=== PATIENT | male | born 1950 | race Hispanic/Latino ===

== ENCOUNTER 2018-01-07 15:38 | Inpatient (IN) | payer MEDICARE ==
[2018-01-07] MEDS ORDERED: Sodium Chloride 0.9% 1,000 ML IV ONE (16:37)
[2018-01-07] MEDS ORDERED: Moxifloxacin IV 400mg/250ml NS 400 MG/250 ML BAG IVPB ONE ×2 (16:43→17:20)
[2018-01-07 16:46] LABS: BASO # 0.1 K/uL (0.0-0.2); BASO % 0.8 % (0.0-2.0); EOS # 0.2 K/uL (0.0-0.7); EOS % 2.2 % (0.0-4.0); HEMOGLOBIN 12.7 g/dL (12.0-18.0); LYMPH # 2.2 K/uL (1.0-4.3); LYMPH % 25.1 % (20.0-40.0); MEAN CELL VOLUME 81.8 fL (80.0-94.0); MEAN CORPUSCULAR HEMOGLOBIN 28.2 pg (27.0-31.0); MEAN CORPUSCULAR HGB CONC 34.5 g/dL (33.0-37.0); MEAN PLATELET VOLUME 8.2 fL (7.2-11.7); MONO # 0.8 K/uL (0.0-0.8); MONO % 9.3 % (0.0-10.0); NEUT # 5.5 K/uL (1.8-7.0); NEUT % 62.6 % (50.0-75.0); RBC 4.52 Mil/uL (4.40-5.90); RED CELL DISTRIBUTION WIDTH 14.8 % (11.5-14.5); WHITE BLOOD COUNT 8.8 K/uL (4.8-10.8)
[2018-01-07 16:55] LABS: INR 1.1; PROTHROMBIN TIME 12.2 SECONDS (9.7-12.2)
[2018-01-07] MEDS ORDERED: Sodium Chloride 0.9% 1,000 ML ONE (16:56)
[2018-01-07 17:01] LABS: SQUAMOUS EPITHIAL 1 /hpf (0-5); URINE BACTERIA OCC (<OCC); URINE BILIRUBIN NEGATIVE (NEGATIVE); URINE BLOOD 2+ (NEGATIVE); URINE CLARITY Hazy (Clear); URINE COLOR Red (YELLOW); URINE GLUCOSE (UA) 1+ mg/dL (Normal); URINE LEUKOCYTE ESTERASE NEG Leu/uL (Negative); URINE PROTEIN 2+ mg/dL (NEGATIVE); URINE UROBILINOGEN NORMAL mg/dL (0.2-1.0)
[2018-01-07 17:04] LABS: ALB/GLOB RATIO 1.7 (1.0-2.1); ALBUMIN 4.8 g/dL (3.5-5.0); ALT/SGPT 33 U/L (21-72); AST/SGOT 26 U/L (17-59); BLOOD UREA NITROGEN 21 mg/dL (9-20); GFR NON-AFRICAN AMERICAN > 60
--- NOTE | 2018-01-07 18:46 | C.PDOC ---
History Of Present Illness 67 year old male with PMH HTN, DM, BPH presents to the ED for evaluation of hematuria which began a few weeks ago. Patient states symptoms are associated with decreased stream with urination, urinary frequency and dysuria. Patient was evaluated by urologist and treated with Cipro, which initially resolved his symptoms until they reoccurred. Patient was evaluated at [facility] two days ago and was started on Bactrim. Patient states his symptoms have persisted and presents to the ED for further evaluation. Patient denies fever, chills, chest pain, vomiting. Time Seen by Provider: 01/07/18 16:12 Chief Complaint (Nursing): Male Genitourinary History Per: Patient History/Exam Limitations: no limitations Onset/Duration Of Symptoms: Days Current Symptoms Are (Timing): Still Present Associated Symptoms: Urinary Symptoms. denies: Fever, Chills, Vomiting, Chest Pain Past Medical History Reviewed: Historical Data, Nursing Documentation, Vital Signs Vital Signs: Last Vital Signs Temp 97.8 F 01/07/18 15:48 Pulse 86 01/07/18 15:48 Resp 19 01/07/18 15:48 BP 102/68 01/07/18 15:48 Pulse Ox 99 01/07/18 15:48 - Medical History PMH: HTN Surgical History: Back Surgery (C2-C3 fusion), Tonsillectomy Family History: States: Unknown Family Hx - Social History Hx Alcohol Use: Yes Hx Substance Use: No - Immunization History Hx Tetanus Toxoid Vaccination: No Hx Influenza Vaccination: No Hx Pneumococcal Vaccination: No Review Of Systems Constitutional: Negative for: Fever, Chills Cardiovascular: Negative for: Chest Pain Gastrointestinal: Negative for: Nausea, Vomiting Genitourinary: Positive for: Dysuria, Frequency, Hematuria Physical Exam - Physical Exam Appears: Non-toxic, No Acute Distress Skin: Normal Color, Warm, Dry Head: Atraumatic, Normacephalic Eye(s): bilateral: Normal Inspection, EOMI Oral Mucosa: Moist Neck: Normal ROM, Supple Chest: Symmetrical, No Deformity, No Tenderness Cardiovascular: Rhythm Regular Respiratory: Normal Breath Sounds, No Rales, No Rhonchi, No Wheezing Gastrointestinal/Abdominal: Soft, No Tenderness, No Guarding, No Rebound Male Genital: Other (gross hematuria noted ) Extremity: Normal ROM, Capillary Refill (less than 2 seconds ) Neurological/Psych: Oriented x3, Normal Speech, Normal Cognition ED Course And Treatment - Laboratory Results Result Diagrams: 01/07/18 16:42 01/07/18 16:42 O2 Sat by Pulse Oximetry: 99 (on RA) Pulse Ox Interpretation: Normal Progress Note: Bloodwork and urinalysis ordered and reviewed. Avelox IV and IV Fluids given. Case discussed with Dr. Navarro, who instructs admission and states patient will undergo cystoscopy tomorrow afternoon. Instructs NPO after midnight. Case discussed with Dr. Pinon, who agrees upon plan and admission. Disposition - Disposition Disposition: HOSPITALIZED Disposition Time: 16:00 Condition: STABLE - Clinical Impression Clinical Impression: Hematuria - PA / CLIENT SOLUTIONS MANAGER / Resident Statement MD/DO has reviewed & agrees with the documentation as recorded. - Scribe Statement The provider has reviewed the documentation as recorded by the Scribe (Glenis Pinon) All medical record entries made by the Scribe were at my direction and personally dictated by me. I have reviewed the chart and agree that the record accurately reflects my personal performance of the history, physical exam, medical decision making, and the department course for this patient. I have also personally directed, reviewed, and agree with the discharge instructions and disposition.
--- NOTE | 2018-01-07 21:31 | CP.PCM.HP ---
Past Patient History - Past Medical History & Family History Past Medical History?: Yes - Past Social History Smoking Status: Former Smoker - CARDIAC Hx Hypertension: Yes - ENDOCRINE/METABOLIC Hx Diabetes Mellitus Type 2: Yes - MUSCULOSKELETAL/RHEUMATOLOGICAL Hx Falls: No - PSYCHIATRIC Hx Substance Use: No - SURGICAL HISTORY Hx Tonsillectomy: Yes - ANESTHESIA Hx Anesthesia: Yes Meds Allergies/Adverse Reactions: Allergies Allergy/AdvReac Type Severity Reaction Status Date / Time Penicillins Allergy Verified 01/07/18 15:57 Results - Vital Signs Recent Vital Signs: Last Vital Signs Temp 98.2 F 01/07/18 21:12 Pulse 72 01/07/18 21:12 Resp 20 01/07/18 21:12 BP 106/63 01/07/18 21:12 Pulse Ox 96 01/07/18 21:12 - Labs Result Diagrams: 01/07/18 16:42 01/07/18 16:42 Labs: Laboratory Results - last 24 hr 01/07/18 01/07/18 01/07/18 16:42 16:42 16:42 WBC 8.8 RBC 4.52 Hgb 12.7 Hct 37.0 MCV 81.8 MCH 28.2 MCHC 34.5 RDW 14.8 H Plt Count 169 MPV 8.2 Neut % (Auto) 62.6 Lymph % (Auto) 25.1 [place] % (Auto) 9.3 Eos % (Auto) 2.2 Baso % (Auto) 0.8 Neut # (Auto) 5.5 Lymph # (Auto) 2.2 [place] # (Auto) 0.8 Eos # (Auto) 0.2 Baso # (Auto) 0.1 PT 12.2 INR 1.1 APTT 30 Sodium Potassium Chloride Carbon Dioxide Anion Gap BUN Creatinine Est GFR ( Amer) Est GFR (Non-Af Amer) Random Glucose Calcium Total Bilirubin AST ALT Alkaline Phosphatase Total Creatine Kinase Total Protein Albumin Globulin Albumin/Globulin Ratio Urine Color Red Urine Clarity Hazy Urine pH 5.0 Ur Specific [place] 1.019 Urine Protein 2+ H Urine Glucose (UA) 1+ H Urine Ketones Negative Urine Blood 2+ H Urine Nitrate Negative Urine Bilirubin Negative Urine Urobilinogen Normal Ur Leukocyte Esterase Neg Urine RBC (Auto) 1118 H Ur Squamous Epith Cells 1 Urine Bacteria Occ H 01/07/18 01/07/18 16:42 17:09 WBC RBC Hgb Hct MCV MCH MCHC RDW Plt Count MPV Neut % (Auto) Lymph % (Auto) [place] % (Auto) Eos % (Auto) Baso % (Auto) Neut # (Auto) Lymph # (Auto) [place] # (Auto) Eos # (Auto) Baso # (Auto) PT INR APTT Sodium 140 Potassium 4.3 Chloride 104 Carbon Dioxide 21 L Anion Gap 19 BUN 21 H Creatinine 1.1 Est GFR ( Amer) > 60 Est GFR (Non-Af Amer) > 60 Random Glucose 131 H Calcium 10.0 Total Bilirubin 0.6 AST 26 ALT 33 Alkaline Phosphatase 62 Total Creatine Kinase 92 Total Protein 7.6 Albumin 4.8 Globulin 2.8 Albumin/Globulin Ratio 1.7 Urine Color Urine Clarity Urine pH Ur Specific [place] Urine Protein Urine Glucose (UA) Urine Ketones Urine Blood Urine Nitrate Urine Bilirubin Urine Urobilinogen Ur Leukocyte Esterase Urine RBC (Auto) Ur Squamous Epith Cells Urine Bacteria
[2018-01-07] MEDS: Ciprofloxacin 400mg/200ml D5W 400 MG/200 ML BAG IVPB SCH (22:02)
[2018-01-08] MEDS: Multiple Vitamins Tab PO SCH (09:29)
[2018-01-08] MEDS: Ciprofloxacin 400mg/200ml D5W 400 MG/200 ML BAG IVPB SCH ×2 (10:07→21:09)
[2018-01-08] MEDS ORDERED: Propofol 10 mg/ml Inj (20 ML) ONE ×2 (10:57→11:08)
[2018-01-08] MEDS: Gentamicin 160 MG in Sodium Chloride 0.9% 100 ML IVPB ONE ×2 (11:05→11:10)
--- NOTE | 2018-01-08 11:23 | CP.PCM.PN ---
Subjective - Date & Time of Evaluation Date of Evaluation: 01/08/18 Time of Evaluation: 10:20 - Subjective Subjective: 67year old male who presented with gross hematuria, pt has hx BPH and was on flomax and proscar he was treated at [facility] and discharges on ct at [facility] showed normal upper tracts and enlarged prostate PSA was in the 9 range . Pt is having difficulty voiding and is voiding dark brown urine with clots. Bladder appears distended. A BPH with retention and possible clot retention. Plan will procede with cipro and possible evacuation of clots. Ramon Objective - Vital Signs/Intake and Output Vital Signs (last 24 hours): Temp Pulse Resp BP Pulse Ox 98.1 F 76 20 98/55 L 95 01/08/18 08:00 01/08/18 08:00 01/08/18 08:00 01/08/18 08:00 01/08/18 08:00 Intake and Output: 01/08/18 01/08/18 06:59 18:59 Intake Total 200 0 Output Total 600 Balance -400 0 - Medications Medications: Current Medications Acetaminophen (Tylenol 325mg Tab) 325 mg PO Q6H PRN PRN Reason: Pain, Mild (1-3) Allopurinol (Zyloprim) 300 mg PO DAILY [facility] Last Admin: 01/08/18 09:29 Dose: Not Given Donepezil HCl (Aricept) 10 mg PO DAILY [facility] Last Admin: 01/08/18 09:28 Dose: Not Given Finasteride (Proscar) 5 mg PO DAILY [facility] Last Admin: 01/08/18 09:29 Dose: Not Given Glipizide (Glucotrol) 10 mg PO BID [facility] Last Admin: 01/08/18 09:29 Dose: Not Given Ciprofloxacin (Cipro 400mg/200ml Dsw) 400 mg in 200 mls @ 133 mls/hr IVPB Q12H [facility]; Protocol Last Admin: 01/08/18 10:07 Dose: 133 mls/hr Gentamicin Sulfate 160 mg/ (Sodium Chloride) 104 mls @ 104 mls/hr IVPB ONCE ONE; Protocol Stop: 01/08/18 11:37 Last Admin: 01/08/18 11:05 Dose: 104 mls Influenza Virus Vaccine (Fluzone Quad [id number]) 60 mcg IM .ONCE ONE Stop: 10/18/18 10:01 Metformin HCl (Glucophage) 1,000 mg PO BID [facility] Last Admin: 01/08/18 09:29 Dose: Not Given Multivitamins (Hexavitamin) 1 tab PO DAILY [facility] Last Admin: 01/08/18 09:29 Dose: Not Given Pantoprazole Sodium (Protonix Inj) 40 mg IVP DAILY [facility] Last Admin: 01/08/18 10:07 Dose: 40 mg Pneumococcal Polyvalent Vaccine (Pneumovax 23 Vaccine) 0.5 ml IM .ONCE ONE Stop: 01/09/18 10:01 Rosuvastatin Calcium (Crestor) 5 mg PO HS [facility] Last Admin: 01/07/18 22:28 Dose: 5 mg Tamsulosin HCl (Flomax) 0.4 mg PO BID [facility] Last Admin: 01/08/18 09:29 Dose: Not Given - Labs Labs: 01/07/18 16:42 01/07/18 16:42 PT 12.2 SECONDS (9.7-12.2) 01/07/18 16:42 INR 1.1 01/07/18 16:42 APTT 30 SECONDS (21-34) 01/07/18 16:42
--- NOTE | 2018-01-08 11:26 | PCM.SURG1 ---
Surgeon's Initial Post Op Note - Surgeon's Notes Surgeon: Ramon Mine Motor Engineer: MAG Type of Anesthesia: General LMA Anesthesia Administered By: staff Pre-Operative Diagnosis: Hematuria/Enlarged prostate/urinary clot retention Operative Findings: E.P 250 cc clotted blood in bladder sig trabeculation of bladder Post-Operative Diagnosis: as pre op Operation Performed: Cysto and evacuation of clots insert valente Specimen/Specimens Removed: 250 cc of clots Estimated Blood Loss: EBL {In ML}: 250 Blood Products Given: N/A Drains Used: No Drains Post-Op Condition: Good Date of Surgery/Procedure: 01/08/18 Time of Surgery/Procedure: 11:27
--- NOTE | 2018-01-08 11:29 | CP.PCM.CON ---
History of Present Illness - History of Present Illness History of Present Illness: Per documentation 67 year old male presents to the ED for evaluation of hematuria which began a few weeks ago. Patient states symptoms are associated with lower abdominal "pressure" during urination, urinary frequency and dysuria. Patient was evaluated by urologist and treated with Cipro, which initially resolved his symptoms until they reoccurred. Patient was evaluated at another hospital two days ago and was started on Bactrim. Patient states his symptoms have persisted and presents to the ED for further evaluation. Patient denies fever, chills, chest pain, vomiting. Patient was originally called for evaluation prior to cystoscopy: he has hx of HTN, DM, lipids Lives with and daughter Ambulatory: moderate with ADls No reports of prior CAD or CV disease + hx of cervical surgery Currently; post cystoscopy with valente NSR No CP or SOB normal auscultation Awake, oriented x3 Clear lungs Review of Systems - Review of Systems All systems: reviewed and no additional remarkable complaints except Past Patient History - Past Medical History & Family History Past Medical History?: Yes - Past Social History Smoking Status: Former Smoker - CARDIAC Hx Hypertension: Yes - ENDOCRINE/METABOLIC Hx Diabetes Mellitus Type 2: Yes - MUSCULOSKELETAL/RHEUMATOLOGICAL Hx Falls: No - PSYCHIATRIC Hx Substance Use: No - SURGICAL HISTORY Hx Tonsillectomy: Yes - ANESTHESIA Hx Anesthesia: Yes Meds Allergies/Adverse Reactions: Allergies Allergy/AdvReac Type Severity Reaction Status Date / Time Penicillins Allergy Verified 01/07/18 15:57 - Medications Medications: Current Medications Acetaminophen (Tylenol 325mg Tab) 325 mg PO Q6H PRN PRN Reason: Pain, Mild (1-3) Allopurinol (Zyloprim) 300 mg PO DAILY [facility] Last Admin: 01/08/18 09:29 Dose: Not Given Donepezil HCl (Aricept) 10 mg PO DAILY [facility] Last Admin: 01/08/18 09:28 Dose: Not Given Finasteride (Proscar) 5 mg PO DAILY [facility] Last Admin: 01/08/18 09:29 Dose: Not Given Glipizide (Glucotrol) 10 mg PO BID [facility] Last Admin: 01/08/18 09:29 Dose: Not Given Ciprofloxacin (Cipro 400mg/200ml Dsw) 400 mg in 200 mls @ 133 mls/hr IVPB Q12H [facility]; Protocol Last Admin: 01/08/18 10:07 Dose: 133 mls/hr Gentamicin Sulfate 160 mg/ (Sodium Chloride) 104 mls @ 104 mls/hr IVPB ONCE O NE; Protocol Stop: 01/08/18 11:37 Last Admin: 01/08/18 11:05 Dose: 104 mls Influenza Virus Vaccine (Fluzone Quad [id number]) 60 mcg IM .ONCE ONE Stop: 01/09/18 10:01 Metformin HCl (Glucophage) 1,000 mg PO BID [facility] Last Admin: 01/08/18 09:29 Dose: Not Given Multivitamins (Hexavitamin) 1 tab PO DAILY [facility] Last Admin: 01/08/18 09:29 Dose: Not Given Pantoprazole Sodium (Protonix Inj) 40 mg IVP DAILY [facility] Last Admin: 01/08/18 10:07 Dose: 40 mg Pneumococcal Polyvalent Vaccine (Pneumovax 23 Vaccine) 0.5 ml IM .ONCE ONE Stop: 01/09/18 10:01 Rosuvastatin Calcium (Crestor) 5 mg PO HS [facility] Last Admin: 01/07/18 22:28 Dose: 5 mg Tamsulosin HCl (Flomax) 0.4 mg PO BID [facility] Last Admin: 01/08/18 09:29 Dose: Not Given Physical Exam - Constitutional Appears: No Acute Distress - Head Exam Head Exam: ATRAUMATIC, NORMAL INSPECTION, NORMOCEPHALIC - Eye Exam Eye Exam: EOMI, Normal appearance - ENT Exam ENT Exam: Mucous Membranes Moist, Normal Oropharynx - Neck Exam Neck exam: Positive for: Full Rom, Normal Inspection. Negative for: Tenderness - Respiratory Exam Respiratory Exam: Clear to Auscultation Bilateral. absent: Rhonchi, Wheezes - Cardiovascular Exam Cardiovascular Exam: REGULAR RHYTHM, +S1, +S2. absent: Systolic Murmur - GI/Abdominal Exam GI & Abdominal Exam: Normal Bowel Sounds, Soft. absent: Tenderness - Extremities Exam Extremities exam: Positive for: normal inspection. Negative for: calf tenderness - Neurological Exam Neurological exam: Alert, Oriented x3 - Psychiatric Exam Psychiatric exam: Normal Affect, Normal Mood Results - Vital Signs Recent Vital Signs: Last Vital Signs Temp 98.1 F 01/08/18 08:00 Pulse 76 01/08/18 08:00 Resp 20 01/08/18 08:00 BP 98/55 L 01/08/18 08:00 Pulse Ox 95 01/08/18 08:00 - Labs Result Diagrams: 01/07/18 16:42 01/07/18 16:42 Labs: Laboratory Results - last 24 hr 01/07/18 01/07/18 01/07/18 16:42 16:42 16:42 WBC 8.8 RBC 4.52 Hgb 12.7 Hct 37.0 MCV 81.8 MCH 28.2 MCHC 34.5 RDW 14.8 H Plt Count 169 MPV 8.2 Neut % (Auto) 62.6 Lymph % (Auto) 25.1 [place] % (Auto) 9.3 Eos % (Auto) 2.2 Baso % (Auto) 0.8 Neut # (Auto) 5.5 Lymph # (Auto) 2.2 [place] # (Auto) 0.8 Eos # (Auto) 0.2 Baso # (Auto) 0.1 PT 12.2 INR 1.1 APTT 30 Sodium Potassium Chloride Carbon Dioxide Anion Gap BUN Creatinine Est GFR ( Amer) Est GFR (Non-Af Amer) POC Glucose (mg/dL) Random Glucose Calcium Total Bilirubin AST ALT Alkaline Phosphatase Total Creatine Kinase Total Protein Albumin Globulin Albumin/Globulin Ratio Urine Color Red Urine Clarity Hazy Urine pH 5.0 Ur Specific [place] 1.019 Urine Protein 2+ H Urine Glucose (UA) 1+ H Urine Ketones Negative Urine Blood 2+ H Urine Nitrate Negative Urine Bilirubin Negative Urine Urobilinogen Normal Ur Leukocyte Esterase Neg Urine RBC (Auto) 1118 H Ur Squamous Epith Cells 1 Urine Bacteria Occ H 01/07/18 01/07/18 01/07/18 16:42 17:09 20:59 WBC RBC Hgb Hct MCV MCH MCHC RDW Plt Count MPV Neut % (Auto) Lymph % (Auto) [place] % (Auto) Eos % (Auto) Baso % (Auto) Neut # (Auto) Lymph # (Auto) [place] # (Auto) Eos # (Auto) Baso # (Auto) PT INR APTT Sodium 140 Potassium 4.3 Chloride 104 Carbon Dioxide 21 L Anion Gap 19 BUN 21 H Creatinine 1.1 Est GFR ( Amer) > 60 Est GFR (Non-Af Amer) > 60 POC Glucose (mg/dL) 129 H Random Glucose 131 H Calcium 10.0 Total Bilirubin 0.6 AST 26 ALT 33 Alkaline Phosphatase 62 Total Creatine Kinase 92 Total Protein 7.6 Albumin 4.8 Globulin 2.8 Albumin/Globulin Ratio 1.7 Urine Color Urine Clarity Urine pH Ur Specific [place] Urine Protein Urine Glucose (UA) Urine Ketones Urine Blood Urine Nitrate Urine Bilirubin Urine Urobilinogen Ur Leukocyte Esterase Urine RBC (Auto) Ur Squamous Epith Cells Urine Bacteria 01/08/18 07:03 WBC RBC Hgb Hct MCV MCH MCHC RDW Plt Count MPV Neut % (Auto) Lymph % (Auto) [place] % (Auto) Eos % (Auto) Baso % (Auto) Neut # (Auto) Lymph # (Auto) [place] # (Auto) Eos # (Auto) Baso # (Auto) PT INR APTT Sodium Potassium Chloride Carbon Dioxide Anion Gap BUN Creatinine Est GFR ( Amer) Est GFR (Non-Af Amer) POC Glucose (mg/dL) 88 Random Glucose Calcium Total Bilirubin AST ALT Alkaline Phosphatase Total Creatine Kinase Total Protein Albumin Globulin Albumin/Globulin Ratio Urine Color Urine Clarity Urine pH Ur Specific [place] Urine Protein Urine Glucose (UA) Urine Ketones Urine Blood Urine Nitrate Urine Bilirubin Urine Urobilinogen Ur Leukocyte Esterase Urine RBC (Auto) Ur Squamous Epith Cells Urine Bacteria Assessment & Plan - Assessment and Plan (Free Text) Assessment: S/P cystoscopy HTN stable DM stable on Rx Lipids tolerates statin therapy Cervical DJD: chronic stable Patient appears comfortable TELE shows NSR No cardiac symtoms suggesting active CAD or ADHF Plan: routine EKG Cont statin DVT prophylaxis Continued Rx as per Urology No additional cardiac tests planned at this time.
[2018-01-08] MEDS: HYDROmorphone 0.5 mg/0.5 ml ISec IVP PRN ×2 (12:10→12:45)
[2018-01-08] MEDS ORDERED: Lactated Ringer's 1,000 ML IV ONE (12:55)
[2018-01-08 17:09] VITALS: RESP 20
--- NOTE | 2018-01-08 20:42 | CP.PCM.PN ---
Subjective - Date & Time of Evaluation Date of Evaluation: 01/08/18 Time of Evaluation: 09:00 - Subjective Subjective: clinically same Objective - Vital Signs/Intake and Output Vital Signs (last 24 hours): Temp Pulse Resp BP Pulse Ox 98.5 F 68 20 112/69 96 01/08/18 16:00 01/08/18 16:00 01/08/18 16:00 01/08/18 16:00 01/08/18 16:00 Intake and Output: 01/08/18 01/09/18 18:59 06:59 Intake Total 2600 Output Total 2100 Balance 500 - Medications Medications: Current Medications Acetaminophen (Tylenol 325mg Tab) 325 mg PO Q6H PRN PRN Reason: Pain, Mild (1-3) Allopurinol (Zyloprim) 300 mg PO DAILY [facility] Last Admin: 01/08/18 09:29 Dose: Not Given Donepezil HCl (Aricept) 10 mg PO DAILY [facility] Last Admin: 01/08/18 09:28 Dose: Not Given Finasteride (Proscar) 5 mg PO DAILY [facility] Last Admin: 01/08/18 09:29 Dose: Not Given Glipizide (Glucotrol) 10 mg PO BID [facility] Last Admin: 01/08/18 17:04 Dose: 10 mg Ciprofloxacin (Cipro 400mg/200ml Dsw) 400 mg in 200 mls @ 133 mls/hr IVPB Q12H [facility]; Protocol Last Admin: 01/08/18 10:07 Dose: 133 mls/hr Lactated Ringer's (Lactated Ringer's) 1,000 mls @ 100 mls/hr IV .Q10H [facility] Influenza Virus Vaccine (Fluzone Quad [id number]) 60 mcg IM .ONCE ONE Stop: 01/09/18 10:01 Metformin HCl (Glucophage) 1,000 mg PO BID [facility] Last Admin: 01/08/18 17:04 Dose: 1,000 mg Multivitamins (Hexavitamin) 1 tab PO DAILY [facility] Last Admin: 01/08/18 09:29 Dose: Not Given Pantoprazole Sodium (Protonix Inj) 40 mg IVP DAILY [facility] Last Admin: 01/08/18 10:07 Dose: 40 mg Pneumococcal Polyvalent Vaccine (Pneumovax 23 Vaccine) 0.5 ml IM .ONCE ONE Stop: 10/18/18 10:01 Rosuvastatin Calcium (Crestor) 5 mg PO HS [facility] Last Admin: 01/07/18 22:28 Dose: 5 mg Tamsulosin HCl (Flomax) 0.4 mg PO BID [facility] Last Admin: 01/08/18 17:04 Dose: 0.4 mg - Labs Labs: 01/07/18 16:42 01/07/18 16:42 PT 12.2 SECONDS (9.7-12.2) 01/07/18 16:42 INR 1.1 01/07/18 16:42 APTT 30 SECONDS (21-34) 01/07/18 16:42
[2018-01-08] MEDS: Lactated Ringer's 1,000 ML IV SCH (21:23)
--- NOTE | 2018-01-09 00:44 | CON ---
DATE: 01/07/2018 TIME: At approximately 10:30 a.m. CHIEF COMPLAINT: Gross hematuria. HISTORY OF PRESENT ILLNESS: The patient is an old patient who recently returned to our practice with voiding symptoms. He was placed on Proscar and Flomax, and his voiding symptoms improved. Lab work including urinalysis showed some wbc's and some rbc's. The patient was also treated with Cipro and says his symptoms got better, but then before his followup appointment, he started having gross painless hematuria. He went to the [facility] ER, where he was evaluated, found to have dark blood urine, started on Septra DS and discharged to follow up in our office. On followup in our office, it was noted that the patient had dark brown urine which was completely bloody and his bladder was slightly distended consistent with urinary clot retention. He was sent to the emergency room, where he was admitted to Dr. Corrine Pinon's service. SOCIAL HISTORY: The patient is a former drug user. He is and lives in [place]. He no longer uses drugs or drinks. He is a former smoker. REVIEW OF SYSTEMS: RESPIRATORY: No respiratory symptoms. GASTROINTESTINAL: No GI symptoms. GENITOURINARY: The patient has gross hematuria as well as frequency, nocturia and difficulty emptying his bladder. ORTHOPEDIC: Negative . PSYCHIATRIC: Negative. PHYSICAL EXAMINATION: VITAL SIGNS: Within normal limits. HEENT: Head, ears, eyes, nose and throat are within normal limits. NECK: Supple. There are no bruits, nodes or masses. CHEST: Clear bilaterally. There are no rales or rhonchi. HEART: Normal sinus rhythm. ABDOMEN: Soft and nontender. The bladder is distended two fingers above the pubic bone. There is no particular tenderness. The patient is not complaining of pain. GENITALIA: Testicles, epididymis and cord are normal. RECTAL: Shows a 3+ nonnodular prostate without induration. EXTREMITIES: Normal. VASCULAR: Normal. NEUROLOGICAL: Normal. IMPRESSION: Gross hematuria with probable urinary clot retention and enlarged prostate. PLAN: I suggest the following: I have reviewed the patient's CAT scan from the [facility] as well as his PSA which is elevated at approximately 9. Based on the above findings and the dark color of the patient's urine, I have made the decision to proceed with cystoscopy today and possible evacuation of clots. We discussed this with the patient, his and his daughter. He agrees and will proceed as soon as OR is available. Jamie Navarro MD
--- NOTE | 2018-01-09 00:48 | OP ---
PROCEDURE DATE: 01/07/2018 PREOPERATIVE DIAGNOSES: Gross hematuria and urinary clot retention, and enlarged prostate. POSTOPERATIVE DIAGNOSES: Enlarged prostate with bladder outlet obstruction, urinary clot retention. PROCEDURE: Cystoscopy and evacuation of clots. DESCRIPTION OF PROCEDURE: The procedure is as follows. Prior to the procedure, a detailed informed consent was obtained from the patient . He was aware of the risks and complications of this procedure and alternative methods of treating urinary clot retention. He agreed to accept the risks and was brought into the room and he was draped and prepped in the usual manner. He received prophylactic antibiotics in addition to the antibiotics he has already had been taking and he was cystoscoped with #21 Storz panendoscope. The pendulous urethra showed trilobar hypertrophy of the prostate with significant outlet obstruction. The bladder was entered atraumatically. It was filled with clots. These were evacuated using a Nuvia syringe. Once all clots were evacuated, the bladder was inspected. There was +4 trabeculation with diverticulum formation and evidence of chronic bladder outlet obstruction. Both ureteral orifices appeared to efflux clear urine. Once all clots were removed, #24 three-way hematuria catheter was inserted and continuous bladder irrigation was begun and was clear. The patient tolerated the procedure well and was sent to the recovery room in good condition. He will need some type of surgery on his prostate to relieve this bladder outlet obstruction. Once all results are available, the patient can be medically cleared. Jamie Navarro MD
[2018-01-09] MEDS: Lactated Ringer's 1,000 ML IV SCH (07:44)
[2018-01-09 07:57] VITALS: BP 126/75; PULSE 98; TEMP 97.9; O2SAT 98
[2018-01-09] MEDS: Multiple Vitamins Tab PO SCH (09:58)
[2018-01-09] MEDS ORDERED: Pneumococcal 23-Valent Vaccine IM ONE (10:00)
[2018-01-09] MEDS ORDERED: Influenza Vaccine 60 MCG/0.5 ML SYR (3 yr & up) IM ONE (10:00)
--- NOTE | 2018-01-09 10:13 | CP.PCM.PN ---
Subjective - Date & Time of Evaluation Date of Evaluation: 01/09/18 Time of Evaluation: 10:10 - Subjective Subjective: Urine clear, Lombardi removed, Pt may be discharged later today if voids Ok pt should remain on proscar flomax and antibiotic,and should follow up in my office within 1 week by appt. Navarro Objective - Vital Signs/Intake and Output Vital Signs (last 24 hours): Temp Pulse Resp BP Pulse Ox 97.9 F 98 H 20 126/75 98 01/09/18 07:55 01/09/18 07:55 01/09/18 07:55 01/09/18 07:55 01/09/18 07:55 Intake and Output: 01/09/18 01/09/18 06:59 18:59 Intake Total 89590 Output Total 08835 Balance 690 - Medications Medications: Current Medications Acetaminophen (Tylenol 325mg Tab) 325 mg PO Q6H PRN PRN Reason: Pain, Mild (1-3) Last Admin: 01/08/18 21:20 Dose: 325 mg Allopurinol (Zyloprim) 300 mg PO DAILY [facility] Last Admin: 01/09/18 09:58 Dose: 300 mg Donepezil HCl (Aricept) 10 mg PO DAILY [facility] Last Admin: 01/09/18 09:58 Dose: 10 mg Finasteride (Proscar) 5 mg PO DAILY [facility] Last Admin: 01/09/18 09:58 Dose: 5 mg Glipizide (Glucotrol) 10 mg PO BID [facility] Last Admin: 01/09/18 09:58 Dose: 10 mg Ciprofloxacin (Cipro 400mg/200ml Dsw) 400 mg in 200 mls @ 133 mls/hr IVPB Q12H [facility]; Protocol Last Admin: 01/08/18 21:09 Dose: 133 mls/hr Lactated Ringer's (Lactated Ringer's) 1,000 mls @ 100 mls/hr IV .Q10H [facility] Last Admin: 01/09/18 07:44 Dose: Not Given Metformin HCl (Glucophage) 1,000 mg PO BID [facility] Last Admin: 01/09/18 09:58 Dose: 1,000 mg Multivitamins (Hexavitamin) 1 tab PO DAILY [facility] Last Admin: 01/09/18 09:58 Dose: 1 tab Pantoprazole Sodium (Protonix Inj) 40 mg IVP DAILY [facility] Last Admin: 01/08/18 10:07 Dose: 40 mg Rosuvastatin Calcium (Crestor) 5 mg PO HS [facility] Last Admin: 01/08/18 21:45 Dose: 5 mg Tamsulosin HCl (Flomax) 0.4 mg PO BID [facility] Last Admin: 01/09/18 09:57 Dose: 0.4 mg - Labs Labs: 01/07/18 16:42 01/07/18 16:42 PT 12.2 SECONDS (9.7-12.2) 01/07/18 16:42 INR 1.1 01/07/18 16:42 APTT 30 SECONDS (21-34) 01/07/18 16:42
[2018-01-09] MEDS: Ciprofloxacin 400mg/200ml D5W 400 MG/200 ML BAG IVPB SCH (10:42)
--- NOTE | 2018-01-09 15:30 | CP.PCM.PN ---
Subjective - Date & Time of Evaluation Date of Evaluation: 01/09/18 Time of Evaluation: 15:00 - Subjective Subjective: [employer] NOT[employer] Patient seen today with Dr. Neff , denies any complaints, voids freely ,urine pink tinged color , no clots noted a febrile s/p cystoscopy yesterday f/c d/c this am and Dr. Wheeler cleared patient for discharge home today and f/u with his office ( already given appointment by Summer Reddy ) As per Dr. Neff patient can be discharged home today and continue macrobid x 7 more days an d resume all home medications Objective - Vital Signs/Intake and Output Vital Signs (last 24 hours): Temp Pulse Resp BP Pulse Ox 97.9 F 98 H 20 126/75 98 01/09/18 07:55 01/09/18 07:55 01/09/18 07:55 01/09/18 07:55 01/09/18 07:55 Intake and Output: 01/09/18 01/09/18 06:59 18:59 Intake Total 15836 1280 Output Total 07367 600 Balance 690 680 - Medications Medications: Current Medications Acetaminophen (Tylenol 325mg Tab) 325 mg PO Q6H PRN PRN Reason: Pain, Mild (1-3) Last Admin: 01/08/18 21:20 Dose: 325 mg Allopurinol (Zyloprim) 300 mg PO DAILY [facility] Last Admin: 01/09/18 09:58 Dose: 300 mg Donepezil HCl (Aricept) 10 mg PO DAILY [facility] Last Admin: 01/09/18 09:58 Dose: 10 mg Finasteride (Proscar) 5 mg PO DAILY [facility] Last Admin: 01/09/18 09:58 Dose: 5 mg Glipizide (Glucotrol) 10 mg PO BID [facility] Last Admin: 01/09/18 09:58 Dose: 10 mg Ciprofloxacin (Cipro 400mg/200ml Dsw) 400 mg in 200 mls @ 133 mls/hr IVPB Q12H [facility]; Protocol Last Admin: 01/09/18 10:42 Dose: 133 mls/hr Lactated Ringer's (Lactated Ringer's) 1,000 mls @ 100 mls/hr IV .Q10H [facility] Last Admin: 01/09/18 07:44 Dose: Not Given Metformin HCl (Glucophage) 1,000 mg PO BID [facility] Last Admin: 01/09/18 09:58 Dose: 1,000 mg Multivitamins (Hexavitamin) 1 tab PO DAILY [facility] Last Admin: 01/09/18 09:58 Dose: 1 tab Pantoprazole Sodium (Protonix Inj) 40 mg IVP DAILY [facility] Last Admin: 01/09/18 10:14 Dose: 40 mg Rosuvastatin Calcium (Crestor) 5 mg PO HS [facility] Last Admin: 01/08/18 21:45 Dose: 5 mg Tamsulosin HCl (Flomax) 0.4 mg PO BID [facility] Last Admin: 01/09/18 09:57 Dose: 0.4 mg - Labs Labs: 01/07/18 16:42 01/07/18 16:42 PT 12.2 SECONDS (9.7-12.2) 01/07/18 16:42 INR 1.1 01/07/18 16:42 APTT 30 SECONDS (21-34) 01/07/18 16:42
== END 2018-01-09 15:59 | disposition home or self-care (01) | DRG 726 ==
LOC: C.ER 15:38 → C.9E 16:40 → C.3T 18:53
PROVIDERS: ADMIT Internal Medicine Nephrology; ATTEND Internal Medicine Nephrology
PROC: 0T9B8ZZ Drainage of Bladder, Via Natural or Artificial Opening Endoscopic (ICD-10-PCS; principal; 2018-01-07)
DX: N40.1 Benign prostatic hyperplasia with lower urinary tract symptoms (principal); N32.0 Bladder-neck obstruction; R33.8 Other retention of urine; R31.0 Gross hematuria; Z87.891 Personal history of nicotine dependence; I10 Essential (primary) hypertension; E11.9 Type 2 diabetes mellitus without complications; M47.812 Spondylosis without myelopathy or radiculopathy, cervical region

== ENCOUNTER 2018-01-27 11:02 | Day surgery (SDC) | payer MEDICARE ==
[2018-01-22 10:41] VITALS: BMI 29.2
[2018-01-27] MEDS ORDERED: Gentamicin 160 MG in Sodium Chloride 0.9% 100 ML IVPB ONE (12:15)
[2018-01-27] MEDS ORDERED: Ciprofloxacin 400mg/200ml D5W 400 MG/200 ML BAG IVPB ONE (12:48)
[2018-01-27] MEDS ORDERED: Lidocaine 2% Jelly (Uro-Jet) ONE (12:49)
[2018-01-27] MEDS ORDERED: Propofol 10 mg/ml Inj (20 ML) ONE (13:09)
[2018-01-27] MEDS ORDERED: HYDROmorphone 0.5 mg/0.5 ml ISec IVP PRN (13:34)
--- NOTE | 2018-01-27 14:14 | PCM.SURG1 ---
Surgeon's Initial Post Op Note - Surgeon's Notes Surgeon: Ramon Grain Receiver: esvin Type of Anesthesia: General LMA Anesthesia Administered By: Staff Pre-Operative Diagnosis: BPH/Gross Hematuria Operative Findings: BPH/PERSON/multiple clots within Bladder Post-Operative Diagnosis: Same Operation Performed: TULAP/cysto evac. clots Specimen/Specimens Removed: clots Estimated Blood Loss: EBL {In ML}: 25 Blood Products Given: N/A Drains Used: No Drains Post-Op Condition: Good Date of Surgery/Procedure: 01/27/18 Time of Surgery/Procedure: 14:14
[2018-01-27 16:45] VITALS: TEMP 97.6
[2018-01-27 17:07] VITALS: RESP 16; O2SAT 95
[2018-01-27 17:08] VITALS: BP 109/66; PULSE 76
--- NOTE | 2018-01-28 06:39 | OP ---
PROCEDURE DATE: 01/27/2018 PREOPERATIVE DIAGNOSIS: Gross hematuria, benign prostatic hyperplasia with bladder outlet obstruction. POSTOPERATIVE DIAGNOSIS: Gross hematuria, benign prostatic hyperplasia with bladder outlet obstruction. PROCEDURE: Cysto evacuation of clots and transurethral laser ablation of the prostate. FINDINGS: Trilobar hypertrophy of the prostate with active bleeding and clots within the bladder and heavily trabeculated bladder with diverticulum formation. SURGEON: Jamie Navarro MD DESCRIPTION OF PROCEDURE: The patient was asked to sign a detailed informed consent prior to the procedure. He is aware of all risks and alternate ways of treating BPH and gross hematuria. The patient agreed to accept the risks. He was brought into the room, and a time-out was taken according to the rules and regulations of [facility]. The patient was given prophylactic antibiotics and then he was cystoscoped with a laser cystoscope. The pendulous and membranous urethra were normal. The prostatic urethra showed trilobar hypertrophy with a small median lobe and significant bladder outlet obstruction. The bladder was entered atraumatically. There was severe trabeculation of the bladder, +4, with diverticulum formation. There was also clotted blood within the bladder where the clots were evacuated free. The laser resectoscope was inserted within the sheath and then the prostate tissue was vaporized beginning at 11 o'clock, just distal to the bladder neck and carried down just proximal to the verumontanum. The opposite side of the base resected in similar fashion. The median lobe was also vaporized taking care to avoid injury to the urethral orifice and bladder, none occurred. The patient tolerated this procedure well. Once meticulous hemostasis was achieved, #22, a 5-cc catheter was inserted and the irrigant flow was clear. The patient was sent to the recovery room in good condition. Jamie Navarro MD
== END 2018-01-27 17:06 | disposition home or self-care (01) ==
LOC: C.SDS 11:02
PROVIDERS: ATTEND Urology
DX: N40.1 Benign prostatic hyperplasia with lower urinary tract symptoms (principal); N13.8 Other obstructive and reflux uropathy; R31.0 Gross hematuria; N32.89 Other specified disorders of bladder; N32.3 Diverticulum of bladder
CPT/HCPCS: 52001; 52648; 82948; 88304; J0744; J1170; J1580